=== PATIENT | female | born 1990 | race Caucasian/White ===

== ENCOUNTER 2017-09-28 02:00 | Emergency (ER) | payer OTHER ==
[~2017-09-28] VITALS: Ht 5.1 cm; Wt 59.0 kg
[~2017-09-28 02:00] MED LIST: CEP500 PO; LOR7.5/325 PO; NO RTN MEDS
--- NOTE | 2017-09-28 02:03 | ER Report ---
History and Physical Time Seen By MD: 02:02 HPI/ROS CHIEF COMPLAINT: Group Home clearance HISTORY OF PRESENT ILLNESS: 27-year-old female brought in by police for long-term clearance. Patient voices no complaints. She states no significant past medical history REVIEW OF SYSTEMS: Respiratory: No cough, no dyspnea. Cardiovascular: No chest pain, no palpitations. Gastrointestinal: No vomiting, no abdominal pain. Musculoskeletal: No back pain. Allergies: Coded Allergies: No Known Drug Allergies (Verified , 06/17/14) Home Meds Reported Medications [No Rtn Meds] No Conflict Check, 0 Refills 09/21/10 Reviewed Nurses Notes: Yes Old Medical Records Reviewed: Yes Hx Smoking: No Smoking Status: Never Smoker Exposure to Second Hand Smoke?: No Hx Substance Use Disorder: No Hx Alcohol Use: Yes Constitutional Vital Sign - Last 24 Hours 09/28/17 02:06 Temp 98.1 Pulse 86 Resp 16 B/P (MAP) 120/82 Pulse Ox 95 O2 Delivery Room Air Physical Exam General Appearance: The patient is alert, has no immediate need for airway protection and no current signs of toxicity. Patient of the head and neck reveals no tenderness or trauma HEENT: Pupils equal and round no injection. Oropharynx without redness or exudate, mucous members are moist Respiratory: Chest is non tender, lungs are clear to auscultation. Cardiac: regular rate and rhythm Gastrointestinal: Abdomen is soft and non tender, no masses, bowel sounds normal. Musculoskeletal: Neck: Neck is supple and non tender. Extremities have full range of motion and are non tender. Skin: No rashes or lesions. DIFFERENTIAL DIAGNOSIS: After history and physical exam differential diagnosis was considered for long-term clearance, alcohol intoxication, polysubstance abuse Medical Decision Making ED Course/Re-evaluation ED Course Patient was admitted to an examination room. The differential diagnoses was considered. On clinical examination, there are no significant findings and, the patient has no complaint. . She has normal vital signs. She is medically cleared for long-term admission. Decision to Disposition Date: Sep 28, 2017 Decision to Disposition Time: 02:11 Depart Departure Latest Vital Signs Vital Signs Date Time Temp Pulse Resp B/P (MAP) Pulse Ox O2 Delivery O2 Flow Rate FiO2 09/28/17 02:06 98.1 86 16 120/82 95 Room Air Impression: Primary Impression: Medical clearance for incarceration Condition: Improved Disposition: HOME OR SELF-CARE Patient Instructions: Alcohol Intoxication (ED) Additional Instructions: Medical cleared for long-term admission SIMA HAMLIN DO Sep 28, 2017 02:03
[2017-09-28 02:06] VITALS: BP 120/82
== END 2017-09-28 02:20 | disposition home or self-care (01) ==
LOC: ER 02:09
DX: F10.920 Alcohol use, unspecified with intoxication, uncomplicated (principal)
CPT/HCPCS: 99281